=== PATIENT | female | born 1975 | race Hispanic/Latino ===

== ENCOUNTER 2017-11-23 18:46 | Emergency (ER) | payer OTHER | END 2017-11-23 19:19 | disposition home or self-care (01) | LOC: ERS 18:46 | DX: H66.91 Otitis media, unspecified, right ear (principal); M54.5 Low back pain; G89.29 Other chronic pain; I10 Essential (primary) hypertension; F41.9 Anxiety disorder, unspecified; F32.9 Major depressive disorder, single episode, unspecified; Z87.891 Personal history of nicotine dependence; Z79.899 Other long term (current) drug therapy; B20 Human immunodeficiency virus [HIV] disease | CPT/HCPCS: 99283 ==

== ENCOUNTER 2018-01-20 18:41 | Emergency (ER) | payer OTHER ==
--- NOTE | 2018-01-20 21:48 | RAD ---
CHEST PA AND LATERAL: HISTORY: A 42-year-old female with a history of cough, congestion, nausea, and vomiting. FINDINGS: Heart size is within normal limits. Lungs are clear. No pneumonia, edema, or pleural effusion. IMPRESSION: No acute intrathoracic disease. POS: [facility]
== END 2018-01-20 22:52 | disposition home or self-care (01) ==
LOC: ERS 18:41
DX: J30.9 Allergic rhinitis, unspecified (principal); F41.9 Anxiety disorder, unspecified; F32.9 Major depressive disorder, single episode, unspecified; M19.90 Unspecified osteoarthritis, unspecified site; B20 Human immunodeficiency virus [HIV] disease; I10 Essential (primary) hypertension; Z79.899 Other long term (current) drug therapy
CPT/HCPCS: 71046; 87081; 87430; 87804; 99406

== ENCOUNTER 2018-02-22 15:51 | Emergency (ER) | payer OTHER ==
[2018-02-22] MEDS ORDERED: Ketorolac Tromethamine 60 MG/2 ML VIAL ONE (16:17)
--- NOTE | 2018-02-22 17:30 | RAD ---
THREE VIEWS LUMBAR SPINE 02/22/18 HISTORY: Fall with back pain. AP, lateral and cone down views of the lumbar spine is obtained. Images demonstrate five nonribbearing lumbar vertebrae. Disc space height loss is seen at L4-5. Vacuu m disc changes seen at L5-S1. No evidence of acute fractures seen. IMPRESSION: Lower lumbar changes of spondylosis. No other acute abnormalities seen. POS: [facility]
--- NOTE | 2018-02-22 17:31 | RAD ---
FOUR VIEWS LEFT KNEE: 02/22/18 HISTORY: Fall. Left knee pain. AP, lateral, and both oblique views left knee is obtained. Four views left knee demonstrates no evidence of left knee fractures, subluxations or bone lesions. IMPRESSION: Normal four views left knee. POS: [facility]
== END 2018-02-22 17:50 | disposition home or self-care (01) ==
LOC: ERS 15:51
DX: M54.5 Low back pain (principal); M25.562 Pain in left knee; B20 Human immunodeficiency virus [HIV] disease; I10 Essential (primary) hypertension; F41.9 Anxiety disorder, unspecified; F32.9 Major depressive disorder, single episode, unspecified; Z87.891 Personal history of nicotine dependence
CPT/HCPCS: 72100; 96372; J1885

== ENCOUNTER 2018-05-18 20:22 | Emergency (ER) | payer OTHER ==
--- NOTE | 2018-05-18 21:02 | RAD ---
THREE VIEWS LEFT WRIST: Date: 05-18-18 Comparison: None. History: Fall, trauma, pain. FINDINGS: There is no widening of the scapholunate interval. No displaced fracture or evidence of dislocation. Alignment appears normal on the lateral view. IMPRESSION: No acute findings. POS: [facility]
== END 2018-05-18 21:48 | disposition home or self-care (01) ==
LOC: ERS 20:22
DX: M25.532 Pain in left wrist (principal); I10 Essential (primary) hypertension; F32.9 Major depressive disorder, single episode, unspecified; F17.210 Nicotine dependence, cigarettes, uncomplicated; Z79.899 Other long term (current) drug therapy; W18.30XA Fall on same level, unspecified, initial encounter

== ENCOUNTER 2018-07-12 17:14 | Emergency (ER) | payer OTHER ==
[2018-07-12 18:11] LABS: #Eosinphils 0.2 thou/uL (0.0-0.7); #Lymphocytes 1.4 thou/uL (1.20-3.40); #Monocytes 0.6 thou/uL (0.11-0.59); #Neutrophils 6.9 thou/uL (1.40-6.50); %Basophils 0.1 % (0.0-1.0); %Eosinophils 1.9 % (0.0-10.0); %Lymphocytes 15.7 % (21.0-51.0); %Neutrophils 75.3 % (42.0-75.0); Mean Corpuscular HGB CONC 31.7 g/dL (32.0-36.0); Mean Corpuscular Hemoglobin 27.1 pg (27.0-31.0); Mean Corpuscular Volume 85.4 fL (78.0-98.0); Mean Platelet Volume 7.9 fL (7.4-10.4); Platelet Count 182 thou/uL (130-400); RBC Distribution Width 13.3 % (11.5-14.5); White Blood Cell (WBC) Count 9.2 thou/uL (4.8-10.8)
[2018-07-12 18:17] LABS: ALT (SGPT) 25 U/L (8-55); AST (SGOT) 18 U/L (5-34); Albumin 4.1 g/dL (3.5-5.0); Alkaline Phosphatase 61 U/L (40-150); Anion Gap 15 mmol/L (10-20); BUN (Urea Nitrogen) 13 mg/dL (7.0-18.7); Bilirubin, Total 0.6 mg/dL (0.2-1.2); CK (CPK) 37 U/L (29-168); Calc. Creatinine Clearance 0 mL/min (70-130); Calcium 9.8 mg/dL (7.8-10.44); Carbon Dioxide 23 mmol/L (22-29); Chloride 101 mmol/L (98-107); Estimated GFR-MDRD 59; Globulin 4.9 g/dL (2.4-3.5); Glucose 103 mg/dL (70-105); Lipase 32 U/L (8-78); Potassium 3.9 mmol/L (3.5-5.1); Sodium 135 mmol/L (136-145)
[2018-07-12] MEDS ORDERED: Metoclopramide HCl 10 MG/2 ML VIAL ONE (18:56)
--- NOTE | 2018-07-12 20:23 | ULT ---
RIGHT UPPER QUADRANT ULTRASOUND: 07/12/18 COMPARISON: None. HISTORY: Right upper quadrant pain, nausea, vomiting, and diarrhea. TECHNIQUE: Multiplanar hartley scale sonographic imaging of the right upper quadrant obtained. FINDINGS: Secondary to bowel gas, the pancreas and the right lobe of the liver are not well seen. Imaged hepati c parenchyma is echogenic and heterogeneous suggesting steatosis. The apparel sales associate reports a negative Stone's sign. No gallbladder wall thickening or pericholecystic fluid. No gallstones are noted. The common bile duct measures 5 mm, within normal limits. The right kidney measures 13.1 cm in cranio caudal dimension and contains 2 subcentimeter cysts. The apparel sales associate reports a negative Stone's sign . IMPRESSION: No evidence for cholelithiasis, cholecystitis or biliary dilatation. Findings suggesting hepatic stea tosis. POS: [facility]
[2018-07-12 20:31] LABS: Bilirubin Negative (Negative); Blood, Urine Moderate (Negative); Clarity CLEAR (Clear); Glucose, Urine (Dipstick) Negative (Negative); Leukocyte Negative (Negative); Nitrite Negative (Negative); Protein, Urine (Dipstick) Negative (Neg-Trace); Specific Gravity, Urine 1.015 (1.002-1.036); pH, Urine 5.5 (5.0-9.0)
[2018-07-12 20:33] LABS: Bacteria/HPF None Seen HPF (None Seen); Hyaline Casts/LPF 0-3 HYALINE CAST LPF (0-3 Hyaline); Pathc Cast-AUWi Flag 0.14 (0-2.49); Squamous Epithelial 0-3 HPF (0-3); WBC/HPF 0-3 HPF (0-3)
== END 2018-07-12 20:45 | disposition home or self-care (01) ==
LOC: ERS 17:14
DX: R11.2 Nausea with vomiting, unspecified (principal); R10.9 Unspecified abdominal pain; F41.9 Anxiety disorder, unspecified; F32.9 Major depressive disorder, single episode, unspecified; B20 Human immunodeficiency virus [HIV] disease; I10 Essential (primary) hypertension; F17.210 Nicotine dependence, cigarettes, uncomplicated; M19.90 Unspecified osteoarthritis, unspecified site; Z79.899 Other long term (current) drug therapy
CPT/HCPCS: 36415; 76705; 80053; 81003; 81015; 82550; 83690; 85025; 96365; 96366; J2765

== ENCOUNTER 2019-12-03 08:56 | Outpatient (CLI) | payer OTHER ==
--- NOTE | 2019-12-03 09:10 | RAD ---
EXAM: XR Ankle Rt 2 View PROVIDED CLINICAL HISTORY: Disability exam FINDINGS: There is no evidence for fracture or other acute osseous abnormality. Alignment appears anatomic. Carrol nt spaces appear preserved. Small plantar calcaneal enthesophyte. IMPRESSION: No evidence for an acute osseous abnormality or significant arthropathy.
== END 2019-12-03 08:57 | disposition home or self-care (01) ==
LOC: BICRAD 08:56
PROVIDERS: ATTEND Internal Medicine
DX: Z02.71 Encounter for disability determination (principal)

== ENCOUNTER 2020-09-29 13:11 | Emergency (ER) | payer OTHER ==
--- NOTE | 2020-09-29 14:58 | RAD ---
XR Hand Rt 3 View STANDARD: 09/29/2020 2:00 PM CLINICAL INDICATION: Fall with right hand pain COMPARISON: None. FINDINGS: Bones: No acute osseous abnormality. Joints: Joint spaces are preserved. Soft Tissue: Soft tissues are normal appearing. IMPRESSION: No acute osseous abnormality..
--- NOTE | 2020-09-29 15:18 | RAD ---
EXAM: LUMBAR SPINE THREE VIEWS: 09/29/20 HISTORY: Low back pain. COMPARISON: 02/22/18. Disc space narrowing at L5-S1. Mild facet arthrosis. No fracture, dislocation or malalignment. IMPRESSION: Spondylosis with disc space narrowing at L5-S1. POS: [facility]
--- NOTE | 2020-09-29 15:21 | RAD ---
EXAM: RIGHT WRIST THREE VIEWS: 09/29/20 HISTORY: Injury from a fall on Saturday with right wrist and hand pain. Minimal generalized soft tissue fullness of the hand and wrist. Interosseous cystic changes within th e distal navicular bone. No acute fracture or dislocation. IMPRESSION: Interosseous cystic changes in the distal navicular bone without acute fracture or dislocation. POS: [facility]
== END 2020-09-29 15:13 | disposition home or self-care (01) ==
LOC: ERS 13:11
DX: S39.012A Strain of muscle, fascia and tendon of lower back, initial encounter (principal); M25.531 Pain in right wrist; I10 Essential (primary) hypertension; Z79.899 Other long term (current) drug therapy; Z87.891 Personal history of nicotine dependence; W19.XXXA Unspecified fall, initial encounter
CPT/HCPCS: 72100

== ENCOUNTER 2020-12-22 17:30 | Observation (INO) | payer OTHER ==
[2020-12-22 18:05] LABS: #Eosinphils 0.2 thou/uL (0.0-0.7); #Neutrophils 7.7 thou/uL (1.40-6.50); %Basophils 0.2 % (0.0-1.0); Mean Corpuscular Volume 86.8 fL (78.0-98.0)
[2020-12-22 18:11] LABS: #Lymphocytes 2.4 thou/uL (1.20-3.40); #Monocytes 0.5 thou/uL (0.11-0.59); %Monocytes 4.9 % (0.0-10.0); %Neutrophils 70.9 % (42.0-75.0); Hemoglobin 13.6 g/dL (12.0-16.0); Mean Corpuscular Hemoglobin 27.8 pg (27.0-31.0); Platelet Count 217 thou/uL (130-400); Red Blood Cell (RBC) Count 4.88 mill/uL (4.20-5.40); White Blood Cell (WBC) Count 10.8 thou/uL (4.8-10.8)
[2020-12-22] MEDS ORDERED: Labetalol HCl 100 MG/20 ML VIAL ONE (18:22)
[2020-12-22 18:30] LABS: ALT (SGPT) 14 U/L (8-55); AST (SGOT) 13 U/L (5-34); Albumin 3.8 g/dL (3.5-5.0); Alkaline Phosphatase 78 U/L (40-110); Anion Gap 12 mmol/L (10-20); BUN (Urea Nitrogen) 14 mg/dL (7.0-18.7); Bilirubin, Total 0.4 mg/dL (0.2-1.2); Calc. Creatinine Clearance 0 mL/min (70-130); Carbon Dioxide 28 mmol/L (22-29); Chloride 102 mmol/L (98-107); Globulin 4.3 g/dL (2.4-3.5); Glucose 116 mg/dL (70-105); Lipase 40 U/L (8-78); Potassium 3.5 mmol/L (3.5-5.1); Protein, Total 8.1 g/dL (6.0-8.3); Sodium 138 mmol/L (136-145)
[2020-12-22] MEDS ORDERED: Acetaminophen 500 MG TAB ONE (19:29)
[2020-12-22] MEDS ORDERED: Ondansetron ODT 4 MG TAB PO PRN (20:16)
[2020-12-22] MEDS ORDERED: Nitroglycerin 0.4 MG TAB (25 Tab Bottle) SL PRN (20:16)
[2020-12-22] MEDS ORDERED: Calcium Carbonate 500 MG ChewTAB PO PRN (20:16)
[2020-12-22] MEDS ORDERED: Ondansetron PF 4 MG/2 ML Vial IVP PRN (20:16)
[2020-12-22] MEDS ORDERED: Senokot S 8.6-50 MG TAB PO PRN (20:16)
[2020-12-22] MEDS ORDERED: Aspirin 325 MG TAB PO SCH (20:30)
[2020-12-22] MEDS ORDERED: Atorvastatin Calcium 40 MG TAB PO SCH (21:00)
[2020-12-22] MEDS: Acetaminophen 325 MG TAB PO PRN (22:53)
[2020-12-23 00:02] VITALS: BMI 52.9
[2020-12-23] MEDS: Acetaminophen 325 MG TAB PO PRN ×2 (04:05→14:31)
[2020-12-23 04:06] LABS: Band 6 % (5-11); Lymphocytes 12 % (21-51); MDiff Complete? YES; Mean Corpuscular HGB CONC 33.2 g/dL (32.0-36.0); Mean Corpuscular Volume 87.2 fL (78.0-98.0); Mean Platelet Volume 8.4 fL (7.4-10.4); Monocytes 5 % (0-10); Neutrophil 72 % (42-75); Platelet Count 189 thou/uL (130-400); Platelet Morphology Comment Appears Adequate; RBC Morphology Normal; Reactive Lymphocytes 5 % (0-10); Red Blood Cell (RBC) Count 4.13 mill/uL (4.20-5.40); White Blood Cell (WBC) Count 10.2 thou/uL (4.8-10.8)
[2020-12-23 04:20] LABS: Troponin I 0.016 ng/mL (< 0.028)
[2020-12-23 04:27] LABS: ALT (SGPT) 13 U/L (8-55); AST (SGOT) 12 U/L (5-34); Albumin 3.2 g/dL (3.5-5.0); Alkaline Phosphatase 67 U/L (40-110); Anion Gap 15 mmol/L (10-20); BUN (Urea Nitrogen) 20 mg/dL (7.0-18.7); Bilirubin, Total 0.3 mg/dL (0.2-1.2); Calc. Creatinine Clearance 157 mL/min (70-130); Calcium 9.4 mg/dL (7.8-10.44); Carbon Dioxide 21 mmol/L (22-29); Chloride 105 mmol/L (98-107); Cholesterol 165 mg/dl (< 200 Desired); Globulin 3.8 g/dL (2.4-3.5); Glucose 97 mg/dL (70-105); HDL Cholesterol 33 mg/dL (>60 Neg Risk); LDL Cholesterol, Calculated 100 mg/dL; Potassium 3.6 mmol/L (3.5-5.1); Sodium 137 mmol/L (136-145); Triglycerides 162 mg/dL (Less than 150)
[2020-12-23 05:12] LABS: SARS-CoV-2 PCR by NAA Not Detected (NotDetected)
[2020-12-23] MEDS: Aspirin 81 mg Enteric Coated Tablet PO SCH (07:54)
[2020-12-23] MEDS ORDERED: Hydrochlorothiazide 25 MG TAB PO SCH (09:00)
[2020-12-23] MEDS ORDERED: Dolutegravir Sodium/Lamivudine [Dovato 50-300 Mg Tablet] PO SCH (09:00)
[2020-12-23] MEDS ORDERED: Enoxaparin Sodium 40 MG/0.4 ML SYRINGE SC SCH (09:00)
[2020-12-23] MEDS ORDERED: Lisinopril 10 MG TAB PO SCH (09:00)
[2020-12-23] MEDS ORDERED: FLU VACC QS2020-21(6MOS UP)/PF 60 MCG/0.5 ML SYRINGE IM ONE (09:00)
[2020-12-23] MEDS ORDERED: Aspirin 325 mg Enteric Coated Tablet PO SCH (09:00)
[2020-12-23] MEDS: Lisinopril 10 MG TAB PO SCH (11:40)
[2020-12-23] MEDS ORDERED: Atorvastatin Calcium 40 MG TAB PO SCH (21:00)
[2020-12-23] MEDS: Enoxaparin Sodium 40 MG/0.4 ML SYRINGE SC SCH (21:31)
[2020-12-24] MEDS: Aspirin 81 mg Enteric Coated Tablet PO SCH (09:21)
[2020-12-24] MEDS: Enoxaparin Sodium 40 MG/0.4 ML SYRINGE SC SCH (09:21)
[2020-12-24] MEDS: Lisinopril 10 MG TAB PO SCH (09:22)
[2020-12-24] MEDS ORDERED: Lorazepam 0.5 MG TAB PO SCH (09:30)
[2020-12-24] MEDS ORDERED: Lisinopril 10 MG TAB PO SCH (09:45)
[2020-12-24 12:07] VITALS: BP 137/87; TEMP 98
[2020-12-25] MEDS ORDERED: Lisinopril 20 MG TAB PO SCH (09:00)
== END 2020-12-24 12:59 | disposition home or self-care (01) ==
LOC: ERS 17:30 → 2SW 19:32
PROVIDERS: ADMIT Family Medicine; ATTEND Family Medicine
DX: R07.89 Other chest pain (principal); I10 Essential (primary) hypertension; M19.90 Unspecified osteoarthritis, unspecified site; F17.210 Nicotine dependence, cigarettes, uncomplicated; Z66 Do not resuscitate; Z21 Asymptomatic human immunodeficiency virus [HIV] infection status; Z79.82 Long term (current) use of aspirin; Z79.899 Other long term (current) drug therapy; Z88.8 Allergy status to other drugs, medicaments and biological substances; Z91.013 Allergy to seafood; Z20.822 Contact with and (suspected) exposure to COVID-19
CPT/HCPCS: 36415; 71045; 78452; 80053; 80061; 83036; 83690; 84443; 84484; 85007; 85025; 85027; 85379; 87635; 90471; 90662; 93005; 93017; 94760; 96372; 96374; A9500; G0008; G0378; J0153; J1650; U0003; U0005

== ENCOUNTER 2021-02-14 20:16 | Emergency (ER) | payer OTHER | END 2021-02-14 22:14 | disposition home or self-care (01) | LOC: ERS 20:16 | DX: S20.212A Contusion of left front wall of thorax, initial encounter (principal); I10 Essential (primary) hypertension; B20 Human immunodeficiency virus [HIV] disease; Z87.891 Personal history of nicotine dependence; Y04.2XXA Assault by strike against or bumped into by another person, initial encounter ==

== ENCOUNTER 2021-02-27 19:30 | Outpatient (CLI) | payer OTHER | END 2021-02-27 19:31 | disposition home or self-care (01) | LOC: SLEEPLAB 19:30 | PROVIDERS: ATTEND Family Medicine | DX: G47.33 Obstructive sleep apnea (adult) (pediatric) (principal); R53.83 Other fatigue; F41.8 Other specified anxiety disorders; R06.83 Snoring; I10 Essential (primary) hypertension; R73.03 Prediabetes; G47.10 Hypersomnia, unspecified; G47.00 Insomnia, unspecified; E66.9 Obesity, unspecified; Z68.43 Body mass index [BMI] 50.0-59.9, adult | CPT/HCPCS: 95811 ==

== ENCOUNTER 2021-04-01 18:27 | Emergency (ER) | payer OTHER ==
[2021-04-01] MEDS ORDERED: Naproxen 500 MG TAB ONE (19:28)
== END 2021-04-01 19:39 | disposition home or self-care (01) ==
LOC: ERS 18:27
DX: M25.531 Pain in right wrist (principal); I10 Essential (primary) hypertension; Z87.891 Personal history of nicotine dependence

== ENCOUNTER 2021-07-06 10:08 | Emergency (ER) | payer OTHER ==
[2021-07-06 11:10] LABS: #Eosinphils 0.3 thou/uL (0.0-0.7); #Lymphocytes 1.9 thou/uL (1.20-3.40); #Monocytes 0.4 thou/uL (0.11-0.59); #Neutrophils 5.6 thou/uL (1.40-6.50); %Basophils 0.3 % (0.0-1.0); %Eosinophils 3.6 % (0.0-10.0); %Lymphocytes 23.6 % (21.0-51.0); %Monocytes 4.4 % (0.0-10.0); %Neutrophils 68.1 % (42.0-75.0); Hemoglobin 12.6 g/dL (12.0-16.0); Mean Corpuscular HGB CONC 33.8 g/dL (32.0-36.0); Mean Corpuscular Hemoglobin 29.1 pg (27.0-31.0); Mean Corpuscular Volume 86.3 fL (78.0-98.0); Mean Platelet Volume 8.3 fL (7.4-10.4); Platelet Count 173 thou/uL (130-400); RBC Distribution Width 13.9 % (11.5-14.5); Red Blood Cell (RBC) Count 4.34 mill/uL (4.20-5.40); White Blood Cell (WBC) Count 8.2 thou/uL (4.8-10.8)
[2021-07-06 11:30] LABS: ALT (SGPT) 24 U/L (8-55); AST (SGOT) 23 U/L (5-34); Albumin 3.7 g/dL (3.5-5.0); Alkaline Phosphatase 66 U/L (40-110); Anion Gap 8 mmol/L (10-20); BUN (Urea Nitrogen) 16 mg/dL (7.0-18.7); Bilirubin, Total 0.4 mg/dL (0.2-1.2); Calc. Creatinine Clearance 0 mL/min (70-130); Calcium 10.1 mg/dL (7.8-10.44); Carbon Dioxide 30 mmol/L (22-29); Chloride 102 mmol/L (98-107); Glucose 132 mg/dL (70-105); Potassium 4.3 mmol/L (3.5-5.1); Protein, Total 7.7 g/dL (6.0-8.3); Sodium 136 mmol/L (136-145)
[2021-07-06] MEDS ORDERED: Metoprolol Tartrate 25 MG TAB ONE (12:16)
== END 2021-07-06 12:56 | disposition home or self-care (01) ==
LOC: ERS 10:08
DX: I10 Essential (primary) hypertension (principal); Z79.899 Other long term (current) drug therapy; E11.40 Type 2 diabetes mellitus with diabetic neuropathy, unspecified; Z87.891 Personal history of nicotine dependence
CPT/HCPCS: 36415; 71045; 80053; 84484; 85025; 93005

== ENCOUNTER 2021-10-13 10:11 | Outpatient (CLI) | payer OTHER | END 2021-10-13 10:12 | disposition home or self-care (01) | LOC: BICRAD 10:11 | PROVIDERS: ATTEND Student in an Organized Health Care Education/Training Program | DX: S69.92XA Unspecified injury of left wrist, hand and finger(s), initial encounter (principal) ==

== ENCOUNTER 2021-11-14 08:22 | Emergency (ER) | payer OTHER ==
[2021-11-14] MEDS ORDERED: Ibuprofen 200 MG TAB ONE (09:43)
== END 2021-11-14 09:47 | disposition home or self-care (01) ==
LOC: ERS 08:22
DX: S93.601A Unspecified sprain of right foot, initial encounter (principal); I10 Essential (primary) hypertension; E11.40 Type 2 diabetes mellitus with diabetic neuropathy, unspecified; Z79.899 Other long term (current) drug therapy; W06.XXXA Fall from bed, initial encounter

== ENCOUNTER 2022-02-05 20:30 | Inpatient (IN) | payer OTHER ==
[2022-02-05 21:05] LABS: #Eosinphils 0.8 thou/uL (0.0-0.7); #Lymphocytes 2.1 thou/uL (1.20-3.40); #Monocytes 0.8 thou/uL (0.11-0.59); #Neutrophils 10.1 thou/uL (1.40-6.50); %Basophils 0.1 % (0.0-1.0); %Eosinophils 5.5 % (0.0-10.0); %Lymphocytes 15.2 % (21.0-51.0); %Monocytes 5.7 % (0.0-10.0); %Neutrophils 73.6 % (42.0-75.0); Hemoglobin 11.5 g/dL (12.0-16.0); Mean Corpuscular HGB CONC 32.3 g/dL (32.0-36.0); Mean Corpuscular Hemoglobin 29.4 pg (27.0-31.0); Mean Platelet Volume 7.4 fL (7.4-10.4); Platelet Count 225 thou/uL (130-400); RBC Distribution Width 14.8 % (11.5-14.5); White Blood Cell (WBC) Count 13.7 thou/uL (4.8-10.8)
[2022-02-05 21:27] LABS: ALT (SGPT) 15 U/L (8-55); AST (SGOT) 12 U/L (5-34); Albumin 3.6 g/dL (3.5-5.0); Alkaline Phosphatase 67 U/L (40-110); Anion Gap 14 mmol/L (10-20); BUN (Urea Nitrogen) 16 mg/dL (7.0-18.7); Bilirubin, Total 0.9 mg/dL (0.2-1.2); Calc. Creatinine Clearance 0 mL/min (70-130); Calcium 9.4 mg/dL (7.8-10.44); Carbon Dioxide 23 mmol/L (22-29); Chloride 101 mmol/L (98-107); Globulin 3.8 g/dL (2.4-3.5); Glucose 120 mg/dL (70-105); Potassium 4.4 mmol/L (3.5-5.1); Protein, Total 7.4 g/dL (6.0-8.3); Sodium 134 mmol/L (136-145)
[2022-02-05 21:50] LABS: Bilirubin Negative (Negative); Blood, Urine 2+ (Negative); Clarity Turbid (Clear); Glucose, Urine (Dipstick) Normal (Negative); Ketone, Urine Negative (Negative); Leukocyte 500 Leu/uL (Negative); Nitrite Negative (Negative); Protein, Urine (Dipstick) 20 mg/dL (Neg-Trace); Specific Gravity, Urine 1.026 (1.002-1.036)
[2022-02-05 22:00] LABS: Bacteria/HPF 3+ HPF (None Seen); WBC/HPF Greater than 50 HPF (0-3)
[2022-02-05] MEDS ORDERED: cefTRIAXone\\ROCEPHIN 1 GM VIAL ONE (23:24)
[2022-02-06] MEDS ORDERED: Ondansetron ODT 4 MG TAB PO PRN (00:08)
[2022-02-06] MEDS ORDERED: Acetaminophen 325 MG TAB PO PRN (00:08)
[2022-02-06 01:56] LABS: SARS-CoV-2 NAA Rapid Test Not Detected (NotDetected)
[2022-02-06 04:02] VITALS: BMI 58.0
[2022-02-06] MEDS: Lactated Ringer's 1,000 ML IV SCH ×4 (04:28→20:35)
[2022-02-06] MEDS ORDERED: HYDROcodone/Acetaminophen 5/325 mg Tablet PO PRN (04:34)
[2022-02-06] MEDS ORDERED: Ibuprofen 800 MG TAB PO PRN (04:34)
[2022-02-06 05:43] LABS: #Eosinphils 0.5 thou/uL (0.0-0.7); #Lymphocytes 1.7 thou/uL (1.20-3.40); #Monocytes 0.9 thou/uL (0.11-0.59); %Basophils 0.1 % (0.0-1.0); %Eosinophils 4.4 % (0.0-10.0); %Lymphocytes 13.8 % (21.0-51.0); %Monocytes 7.2 % (0.0-10.0); %Neutrophils 74.5 % (42.0-75.0); Hemoglobin 10.4 g/dL (12.0-16.0); Mean Corpuscular HGB CONC 32.3 g/dL (32.0-36.0); Mean Corpuscular Hemoglobin 29.9 pg (27.0-31.0); Mean Corpuscular Volume 92.4 fL (78.0-98.0); Mean Platelet Volume 7.6 fL (7.4-10.4); Platelet Count 192 thou/uL (130-400); RBC Distribution Width 14.8 % (11.5-14.5); Red Blood Cell (RBC) Count 3.47 mill/uL (4.20-5.40); White Blood Cell (WBC) Count 12.1 thou/uL (4.8-10.8)
[2022-02-06 06:04] LABS: ALT (SGPT) 12 U/L (8-55); AST (SGOT) 12 U/L (5-34); Albumin 3.1 g/dL (3.5-5.0); Alkaline Phosphatase 56 U/L (40-110); Anion Gap 11 mmol/L (10-20); BUN (Urea Nitrogen) 15 mg/dL (7.0-18.7); Bilirubin, Total 0.7 mg/dL (0.2-1.2); Calc. Creatinine Clearance 163 mL/min (70-130); Calcium 8.8 mg/dL (7.8-10.44); Carbon Dioxide 26 mmol/L (22-29); Chloride 102 mmol/L (98-107); Globulin 3.5 g/dL (2.4-3.5); Glucose 112 mg/dL (70-105); Potassium 4.3 mmol/L (3.5-5.1); Protein, Total 6.6 g/dL (6.0-8.3); Sodium 135 mmol/L (136-145)
[2022-02-06] MEDS ORDERED: HumaLOG 300 UNITS/3 ML VIAL SC PRN ×2 (06:06)
[2022-02-06] MEDS ORDERED: Dextrose 50% Abboject 50 ML SYRINGE SLOW IVP PRN (06:06)
[2022-02-06] MEDS ORDERED: Dextrose 5% in Water 1,000 ML IV PRN (06:06)
[2022-02-06] MEDS: Hydrochlorothiazide 25 MG TAB PO SCH (08:37)
[2022-02-06] MEDS: Lisinopril 20 MG TAB PO SCH (08:37)
[2022-02-06] MEDS: Enoxaparin Sodium 40 MG/0.4 ML SYRINGE SC SCH (08:40)
[2022-02-06] MEDS: Polyethylene Glycol 3350 17 GM Packet PO SCH (08:40)
[2022-02-06] MEDS ORDERED: Cyclobenzaprine 10 MG TAB PO SCH (09:00)
[2022-02-06] MEDS ORDERED: Ketorolac Tromethamine 30 MG/ML VIAL IVP SCH (09:30)
[2022-02-06] MEDS: Ibuprofen 800 MG TAB PO PRN (13:27)
[2022-02-06] MEDS ORDERED: traMADol HCl 50 MG TAB PO SCH (17:15)
[2022-02-06] MEDS: Dolutegravir Sodium/Lamivudine [Dovato 50-300 Mg Tablet] PO SCH (20:36)
[2022-02-06] MEDS: Atorvastatin Calcium 40 MG TAB PO SCH (20:36)
[2022-02-06] MEDS: Cyclobenzaprine 10 MG TAB PO PRN (20:36)
[2022-02-06] MEDS: Liraglutide [Victoza 2-Pak] 0.6 MG/0.1 ML Pen.Injctr SC SCH (20:37)
[2022-02-07] MEDS: cefTRIAXone\\ROCEPHIN 1 GM in Sodium Chloride 0.9% 100 ML IVPB SCH (00:56)
[2022-02-07] MEDS: Lactated Ringer's 1,000 ML IV SCH ×3 (04:14→20:14)
[2022-02-07] MEDS: Ibuprofen 800 MG TAB PO PRN ×2 (04:14→13:41)
[2022-02-07] MEDS: Hydrochlorothiazide 25 MG TAB PO SCH (07:58)
[2022-02-07] MEDS: Lisinopril 20 MG TAB PO SCH (07:58)
[2022-02-07] MEDS: Polyethylene Glycol 3350 17 GM Packet PO SCH (07:59)
[2022-02-07] MEDS: Enoxaparin Sodium 40 MG/0.4 ML SYRINGE SC SCH ×2 (07:59→16:04)
[2022-02-07 08:58] LABS: #Eosinphils 0.6 thou/uL (0.0-0.7); #Lymphocytes 1.7 thou/uL (1.20-3.40); #Monocytes 0.6 thou/uL (0.11-0.59); #Neutrophils 8.5 thou/uL (1.40-6.50); %Monocytes 5.4 % (0.0-10.0); %Neutrophils 74.7 % (42.0-75.0); Hemoglobin 9.5 g/dL (12.0-16.0); Mean Corpuscular HGB CONC 32.3 g/dL (32.0-36.0); Mean Corpuscular Hemoglobin 29.8 pg (27.0-31.0); Mean Corpuscular Volume 92.2 fL (78.0-98.0); Mean Platelet Volume 7.7 fL (7.4-10.4); Platelet Count 190 thou/uL (130-400); RBC Distribution Width 14.7 % (11.5-14.5); Red Blood Cell (RBC) Count 3.17 mill/uL (4.20-5.40); White Blood Cell (WBC) Count 11.4 thou/uL (4.8-10.8)
[2022-02-07 09:21] LABS: ALT (SGPT) 10 U/L (8-55); AST (SGOT) 10 U/L (5-34); Alkaline Phosphatase 55 U/L (40-110); Anion Gap 12 mmol/L (10-20); BUN (Urea Nitrogen) 13 mg/dL (7.0-18.7); Bilirubin, Total 0.7 mg/dL (0.2-1.2); Calc. Creatinine Clearance 143 mL/min (70-130); Calcium 8.8 mg/dL (7.8-10.44); Carbon Dioxide 25 mmol/L (22-29); Chloride 103 mmol/L (98-107); Globulin 3.2 g/dL (2.4-3.5); Glucose 158 mg/dL (70-105); Potassium 4.1 mmol/L (3.5-5.1); Protein, Total 6.2 g/dL (6.0-8.3); Sodium 136 mmol/L (136-145)
[2022-02-07] MEDS: Cyclobenzaprine 10 MG TAB PO PRN (13:38)
[2022-02-07] MEDS ORDERED: Ketorolac Tromethamine 30 MG/ML VIAL IVP SCH (16:00)
[2022-02-07] MEDS: Docusate 100 MG CAP PO SCH (20:14)
[2022-02-07] MEDS: Atorvastatin Calcium 40 MG TAB PO SCH (20:14)
[2022-02-07] MEDS: Dolutegravir Sodium/Lamivudine [Dovato 50-300 Mg Tablet] PO SCH (20:14)
[2022-02-07] MEDS: Liraglutide [Victoza 2-Pak] 0.6 MG/0.1 ML Pen.Injctr SC SCH (20:14)
[2022-02-08] MEDS: cefTRIAXone\\ROCEPHIN 1 GM in Sodium Chloride 0.9% 100 ML IVPB SCH (00:34)
[2022-02-08] MEDS ORDERED: Ketorolac Tromethamine 30 MG/ML VIAL IVP SCH (01:45)
[2022-02-08] MEDS: Lactated Ringer's 1,000 ML IV SCH (04:24)
[2022-02-08 08:06] VITALS: BP 113/69; TEMP 97.8
[2022-02-08] MEDS: Enoxaparin Sodium 40 MG/0.4 ML SYRINGE SC SCH (08:09)
[2022-02-08] MEDS: Polyethylene Glycol 3350 17 GM Packet PO SCH (08:10)
[2022-02-08] MEDS: Docusate 100 MG CAP PO SCH (08:10)
[2022-02-08] MEDS: Lisinopril 20 MG TAB PO SCH (08:10)
[2022-02-08] MEDS: Hydrochlorothiazide 25 MG TAB PO SCH (08:10)
== END 2022-02-08 13:37 | disposition home or self-care (01) | DRG 862 ==
LOC: ERS 20:30 → MSONC 23:25
PROVIDERS: ADMIT Student in an Organized Health Care Education/Training Program; ATTEND Student in an Organized Health Care Education/Training Program
DX: T81.40XA Infection following a procedure, unspecified, initial encounter (principal); A41.9 Sepsis, unspecified organism; N12 Tubulo-interstitial nephritis, not specified as acute or chronic; Q60.0 Renal agenesis, unilateral; T81.44XA Sepsis following a procedure, initial encounter; Z66 Do not resuscitate; Z20.822 Contact with and (suspected) exposure to COVID-19; Z21 Asymptomatic human immunodeficiency virus [HIV] infection status; I10 Essential (primary) hypertension; F41.9 Anxiety disorder, unspecified; F32.A Depression, unspecified; K59.03 Drug induced constipation; T40.2X5A Adverse effect of other opioids, initial encounter; M19.90 Unspecified osteoarthritis, unspecified site; Y83.8 Other surgical procedures as the cause of abnormal reaction of the patient, or of later complication, without mention of misadventure at the time of the procedure; E11.40 Type 2 diabetes mellitus with diabetic neuropathy, unspecified; Z88.8 Allergy status to other drugs, medicaments and biological substances; Z91.013 Allergy to seafood; Z90.49 Acquired absence of other specified parts of digestive tract; Z98.51 Tubal ligation status; Z90.710 Acquired absence of both cervix and uterus; Z79.899 Other long term (current) drug therapy; Z90.721 Acquired absence of ovaries, unilateral; Z82.49 Family history of ischemic heart disease and other diseases of the circulatory system; Z80.9 Family history of malignant neoplasm, unspecified; Z87.891 Personal history of nicotine dependence; Z87.440 Personal history of urinary (tract) infections
CPT/HCPCS: 36415; 36416; 71045; 74176; 80053; 81003; 81015; 83605; 84145; 85025; 87040; 87086; 96365; J0696; J1650; J1885; J3490; J7120; U0002

== ENCOUNTER 2022-05-27 15:56 | Emergency (ER) | payer OTHER | END 2022-05-27 16:48 | disposition home or self-care (01) | LOC: ERS 15:56 | DX: B34.9 Viral infection, unspecified (principal); I10 Essential (primary) hypertension; B20 Human immunodeficiency virus [HIV] disease; E11.40 Type 2 diabetes mellitus with diabetic neuropathy, unspecified; Z79.899 Other long term (current) drug therapy | CPT/HCPCS: 99283 ==

== ENCOUNTER 2022-08-27 09:22 | Outpatient (CLI) | payer OTHER | END 2022-08-27 09:23 | disposition home or self-care (01) | LOC: BICRAD 09:22 | PROVIDERS: ATTEND Internal Medicine | DX: Z02.71 Encounter for disability determination (principal) | CPT/HCPCS: 72100 ==

== ENCOUNTER 2022-08-28 09:18 | Outpatient (CLI) | payer OTHER | END 2022-08-28 09:19 | disposition home or self-care (01) | LOC: BICRAD 09:18 | PROVIDERS: ATTEND Family Medicine | DX: J18.9 Pneumonia, unspecified organism (principal) | CPT/HCPCS: 71046 ==

== ENCOUNTER 2022-10-16 09:21 | Outpatient (CLI) | payer OTHER | END 2022-10-16 09:22 | disposition home or self-care (01) | LOC: BICRAD 09:21 | PROVIDERS: ATTEND Family Medicine | DX: M25.552 Pain in left hip (principal) | CPT/HCPCS: 72170 ==